=== PATIENT | female | born 1965 | race Two or more races ===

== ENCOUNTER 2022-02-05 11:54 | Inpatient (IN) | payer BC, OTHER ==
[~2022-02-05] VITALS: Ht 165.1 cm; Wt 90.5 kg
[2022-02-05] MEDS ORDERED: SODIUM CHLORIDE 0.9% 500 ML IVB ONE (12:15)
[2022-02-05] MEDS ORDERED: MORPHINE SULFATE 4 MG/ML SYR/VIAL IV ONE (12:15)
[2022-02-05] MEDS ORDERED: ONDANSETRON HCL 4 MG/2 ML VIAL IV ONE (12:15)
[2022-02-05 13:49] LABS: Basophils # (auto) 0 10 ^3/uL (0-0.2); Basophils % (auto) 0.4 % (0.0-2.0); Eosinophils # (auto) 0.1 10 ^3/uL (0-0.8); Eosinophils % (auto) 0.5 % (0.0-7.0); Hematocrit 30.1 % (36.0-46.0); Hemoglobin 9.8 g/dL (12.2-16.2); Lymphocytes # (auto) 1.1 10 ^3/uL (0.4-5.4); Lymphocytes % (auto) 10.5 % (10.0-50.0); Mean Corpuscular Hemoglobin 30.5 pg (28.0-32.0); Mean Corpuscular Hgb Conc. 32.7 g/dL (32.0-36.0); Mean Corpuscular Volume 93.4 fL (80.0-100.0); Monocytes # (auto) 0.6 10 ^3/uL (0-1.3); Monocytes % (auto) 6.1 % (0.0-12.0); Neutrophils # (auto) 8.3 10 ^3/uL (1.6-8.6); Neutrophils % (auto) 82.5 % (37.0-80.0); Red Blood Cells 3.23 10^6/uL (4.0-5.20); Red Cell Distribution Width 14.3 % (11.8-14.3); White Blood Cell 10.1 10^3/uL (4.4-10.8)
[2022-02-05 14:10] LABS: Albumin 3.4 g/dL (3.4-5.0); Calcium 9.2 mg/dL (8.5-10.1); Potassium 4.8 mmol/L (3.5-5.1)
[2022-02-05 14:13] LABS: BUN/Creatinine Ratio 42.9; Bilirubin, Total 0.4 mg/dL (0.2-1.0); Total Protein 7.3 g/dL (6.4-8.2)
[2022-02-05 14:34] LABS: Urine Bacteria FEW /hpf (None Seen); Urine Blood Negative /uL (Negative); Urine Specific Gravity 1.007 (1.001-1.035); Urine WBC <1 /hpf (0 - 5)
[2022-02-05] MEDS ORDERED: ONDANSETRON HCL 4 MG/2 ML VIAL IV PRN (17:00)
[2022-02-05] MEDS ORDERED: DOCUSATE SOD 100 MG CAP PO PRN (17:00)
[2022-02-05] MEDS ORDERED: NITROGLYCERIN 0.4 MG SL TAB SL PRN (17:00)
[2022-02-05] MEDS ORDERED: MORPHINE SULFATE INJECTION 2 MG/ML SYRG IV PRN (17:00)
[2022-02-06] MEDS: HYDROcodone-ACET 5/325MG TAB PO PRN ×2 (00:04→09:51)
[2022-02-06] MEDS: PANTOPRAZOLE 40 MG TAB PO SCH (09:50)
[2022-02-06 10:19] VITALS: BP 168/75
[2022-02-06] MEDS ORDERED: ZINC220C8 PO (12:28)
[2022-02-06] MEDS ORDERED: TRAZ50TA2 PO (12:28)
[2022-02-06] MEDS ORDERED: ASCO500T11 PO (12:28)
[2022-02-06] MEDS ORDERED: ERGO1CAP23 PO (12:28)
[2022-02-06] MEDS ORDERED: PRE1T PO (12:28)
[2022-02-06] MEDS ORDERED: MYCO360T PO (12:28)
[2022-02-06] MEDS ORDERED: ATOR20TA PO (12:28)
[2022-02-06] MEDS ORDERED: FERR-20 PO (12:32)
[2022-02-06] MEDS ORDERED: TACR1GRA PO (12:32)
[2022-02-06] MEDS ORDERED: BUME1TAB25 PO (12:32)
[2022-02-06] MEDS ORDERED: NEBI5TAB2 PO (12:32)
[2022-02-06] MEDS ORDERED: HYDR50TA15 PO (12:32)
[2022-02-06] MEDS ORDERED: VALS40TA2 PO (12:32)
[2022-02-06 12:40] VITALS: BP 149/60
[2022-02-06] MEDS: SODIUM CHLORIDE 0.9% 1,000 ML IV SCH (13:44)
[2022-02-06] MEDS ORDERED: TACROLIMUS 1 MG CAP PO PRN (13:45)
[2022-02-06] MEDS: HYDROmorphone HCL 2 MG/ML VL IV PRN ×3 (13:45→22:43)
[2022-02-06] MEDS: hydrALAZINE HCL 25 MG TAB PO SCH ×2 (14:15→22:19)
[2022-02-06 15:58] LABS: Basophils # (auto) 0 10 ^3/uL (0-0.2); Basophils % (auto) 0.4 % (0.0-2.0); Eosinophils # (auto) 0.1 10 ^3/uL (0-0.8); Eosinophils % (auto) 1.2 % (0.0-7.0); Hematocrit 26.3 % (36.0-46.0); Hemoglobin 8.8 g/dL (12.2-16.2); Lymphocytes # (auto) 1.4 10 ^3/uL (0.4-5.4); Lymphocytes % (auto) 20.5 % (10.0-50.0); Mean Corpuscular Hemoglobin 31.1 pg (28.0-32.0); Mean Corpuscular Hgb Conc. 33.3 g/dL (32.0-36.0); Mean Corpuscular Volume 93.2 fL (80.0-100.0); Monocytes # (auto) 0.7 10 ^3/uL (0-1.3); Monocytes % (auto) 10.4 % (0.0-12.0); Neutrophils # (auto) 4.6 10 ^3/uL (1.6-8.6); Neutrophils % (auto) 67.5 % (37.0-80.0); Nucleated Red Blood Cells % 0.1 %; Red Blood Cells 2.82 10^6/uL (4.0-5.20); Red Cell Distribution Width 14.5 % (11.8-14.3); White Blood Cell 6.8 10^3/uL (4.4-10.8)
[2022-02-06 16:11] LABS: Albumin 2.9 g/dL (3.4-5.0); Calcium 8.6 mg/dL (8.5-10.1); Potassium 4.3 mmol/L (3.5-5.1)
[2022-02-06 16:14] LABS: BUN/Creatinine Ratio 39.4; Bilirubin, Total 0.3 mg/dL (0.2-1.0); Total Protein 6.4 g/dL (6.4-8.2)
[2022-02-06 17:00] VITALS: BP 131/60
[2022-02-06 22:00] VITALS: BP 150/60
[2022-02-06] MEDS: METOPROLOL TARTRATE 25 MG TAB PO SCH (22:20)
[2022-02-06] MEDS: ATORVASTATIN 20 MG TAB PO SCH (22:20)
[2022-02-07] MEDS: SODIUM CHLORIDE 0.9% 1,000 ML IV SCH ×3 (00:06→19:54)
[2022-02-07] MEDS: HYDROmorphone HCL 2 MG/ML VL IV PRN ×4 (04:54→22:26)
[2022-02-07 05:00] VITALS: BP 178/60
[2022-02-07] MEDS: hydrALAZINE HCL 25 MG TAB PO SCH ×3 (05:43→22:04)
[2022-02-07 06:23] LABS: Calcium 8.3 mg/dL (8.5-10.1); Potassium 4.7 mmol/L (3.5-5.1)
[2022-02-07 06:35] LABS: BUN/Creatinine Ratio 41.1
[2022-02-07] MEDS: predniSONE 5 MG TAB PO SCH (09:23)
[2022-02-07] MEDS: traZODone HCL 50 MG TAB PO SCH (09:24)
[2022-02-07] MEDS: METOPROLOL TARTRATE 25 MG TAB PO SCH ×2 (09:24→22:05)
[2022-02-07] MEDS: PANTOPRAZOLE 40 MG TAB PO SCH (09:24)
[2022-02-07] MEDS ORDERED: TACROLIMUS 1 MG CAP PO SCH (10:00)
[2022-02-07 10:14] VITALS: BP 183/65
[2022-02-07 12:00] VITALS: BP_SYST 165; BP_SYST 183; BP_DIAS 60; BP_DIAS 65
[2022-02-07] MEDS: FERROUS SULFATE 325mg EC TAB PO SCH (13:10)
[2022-02-07 17:00] VITALS: BP 180/56
[2022-02-07 22:00] VITALS: BP 170/69
[2022-02-07] MEDS: ATORVASTATIN 20 MG TAB PO SCH (22:05)
[2022-02-08 05:14] VITALS: BP 166/63
[2022-02-08] MEDS: SODIUM CHLORIDE 0.9% 1,000 ML IV SCH ×2 (05:37→16:21)
[2022-02-08] MEDS: hydrALAZINE HCL 25 MG TAB PO SCH ×3 (06:04→22:37)
[2022-02-08] MEDS: HYDROmorphone HCL 2 MG/ML VL IV PRN ×2 (06:36→15:30)
[2022-02-08 08:00] VITALS: BP 135/50
[2022-02-08 09:00] VITALS: BP 135/50
[2022-02-08] MEDS: METOPROLOL TARTRATE 25 MG TAB PO SCH ×2 (10:00→22:37)
[2022-02-08] MEDS: predniSONE 5 MG TAB PO SCH (10:09)
[2022-02-08] MEDS: traZODone HCL 50 MG TAB PO SCH (10:09)
[2022-02-08] MEDS: PANTOPRAZOLE 40 MG TAB PO SCH (10:09)
[2022-02-08] MEDS: HYDROcodone-ACET 5/325MG TAB PO PRN ×2 (10:25→22:38)
[2022-02-08] MEDS: FERROUS SULFATE 325mg EC TAB PO SCH (11:51)
[2022-02-08] MEDS ORDERED: MET25T PO (12:40)
[2022-02-08 13:00] VITALS: BP 163/60
[2022-02-08 14:54] LABS: BUN/Creatinine Ratio 36.8; Calcium 9.1 mg/dL (8.5-10.1)
[2022-02-08 17:00] VITALS: BP 142/53
[2022-02-08 22:00] VITALS: BP 178/71
[2022-02-08] MEDS: ATORVASTATIN 20 MG TAB PO SCH (22:36)
[2022-02-09] MEDS: SODIUM CHLORIDE 0.9% 1,000 ML IV SCH ×2 (01:30→06:58)
[2022-02-09 05:00] VITALS: BP 161/51
[2022-02-09] MEDS: hydrALAZINE HCL 25 MG TAB PO SCH (05:45)
[2022-02-09] MEDS: HYDROcodone-ACET 5/325MG TAB PO PRN (05:45)
[2022-02-09 07:29] LABS: BUN/Creatinine Ratio 36.1; Calcium 8.6 mg/dL (8.5-10.1); Potassium 4.2 mmol/L (3.5-5.1)
[2022-02-09 08:00] VITALS: BP 154/72
[2022-02-09 08:32] VITALS: BP 154/72
[2022-02-09] MEDS: predniSONE 5 MG TAB PO SCH (09:48)
[2022-02-09] MEDS: PANTOPRAZOLE 40 MG TAB PO SCH (09:48)
[2022-02-09] MEDS: traZODone HCL 50 MG TAB PO SCH (09:49)
[2022-02-09] MEDS: HYDROmorphone HCL 2 MG/ML VL IV PRN (09:50)
[2022-02-09] MEDS: METOPROLOL TARTRATE 25 MG TAB PO SCH (10:00)
[2022-02-09] MEDS: FERROUS SULFATE 325mg EC TAB PO SCH (12:12)
[2022-02-09 12:32] VITALS: BP 114/63
== END 2022-02-09 13:50 | disposition left against medical advice (07) | DRG 698 ==
LOC: ER 11:54 → TELE 16:50 → TELE-WESTW 02-06 09:17
PROVIDERS: ADMIT Internal Medicine; ATTEND Internal Medicine
DX: T86.19 Other complication of kidney transplant (principal); N18.6 End stage renal disease; N17.9 Acute kidney failure, unspecified; I12.0 Hypertensive chronic kidney disease with stage 5 chronic kidney disease or end stage renal disease; D64.9 Anemia, unspecified; E78.5 Hyperlipidemia, unspecified; E88.09 Other disorders of plasma-protein metabolism, not elsewhere classified; M54.50 Low back pain, unspecified; M32.9 Systemic lupus erythematosus, unspecified; Z20.822 Contact with and (suspected) exposure to COVID-19; Y83.0 Surgical operation with transplant of whole organ as the cause of abnormal reaction of the patient, or of later complication, without mention of misadventure at the time of the procedure; Z83.3 Family history of diabetes mellitus; Z90.710 Acquired absence of both cervix and uterus; Z79.899 Other long term (current) drug therapy; Z53.29 Procedure and treatment not carried out because of patient's decision for other reasons
CPT/HCPCS: 36415; 74176; 80048; 80053; 80197; 81001; 83735; 84484; 85025; 96361; 96374; 96375; G0378; J2405; J7507